=== PATIENT | female | born 1985 | race Two or more races ===

== ENCOUNTER 2023-05-11 09:53 | Outpatient (CLI) | payer OTHER | END 2023-05-11 10:01 | disposition home or self-care (01) | LOC: RX STUDY 09:53 | PROVIDERS: ATTEND Obstetrics & Gynecology Reproductive Endocrinology | DX: N93.0 Postcoital and contact bleeding (principal) ==

== ENCOUNTER 2025-01-10 16:09 | Outpatient (CLI) | payer OTHER | END 2025-01-10 17:05 | disposition home or self-care (01) | LOC: NST 16:09 | PROVIDERS: ATTEND Obstetrics & Gynecology Gynecology | DX: Z34.83 Encounter for supervision of other normal pregnancy, third trimester (principal) ==

== ENCOUNTER 2025-02-19 14:00 | Inpatient (IN) | payer OTHER ==
[~2025-02-19] VITALS: Ht 165.1 cm; Wt 72.6 kg
[2025-03-03] VITALS (7 sets, daily range): BP systolic 113–140; BP diastolic 66–87; O2SAT 96
[2025-03-03] MEDS ORDERED: AMPICILLIN SODIUM 2,000 MG VIAL IV ONE (06:15)
[2025-03-03] MEDS ORDERED: RINGERS SOLUTION,LACTATED 1,000 ML IV SCH (06:15)
[2025-03-03] MEDS ORDERED: [UNRECOGNIZED DRUG - OTHER] (07:12)
[2025-03-03 08:54] LABS: BASO % 0.2 % (0.1-1.2); EOS # 0.15 (0.04-0.54); EOS % 1.2 % (0.7-7.0); LYMPH # 1.25 (1.18-3.74); LYMPH % 10.0 % (19.3-53.1); MEAN PLATELET VOLUME 10.50 fl (9.4-12.4); MONO # 0.51 (0.24-0.82); MONO % 4.1 % (4.7-12.5); NEUT # 10.56 (1.56-6.13); NEUT % 84.3 % (34.0-71.1); RED CELL DISTRIBUTION WIDTH 13.2 % (11.6-14.4)
[2025-03-03] MEDS ORDERED: AMPICILLIN SODIUM 1,000 MG VIAL IV SCH (09:00)
[2025-03-03 09:23] LABS: ALT/SGPT 21.0 U/L (12-78); AST/SGOT 18.0 U/L (15-37); BILIRUBIN TOTAL 0.45 mg/dL (0.3-1.2); BUN CREA RATIO 19.0 (7.0-25.0); CREATININE SERUM 0.43 mg/dL (0.55-1.02); GFR 164.33; GLOBULINA 3.8 G/DL (2.4-3.5); GLUCOSE FASTING 118.0 mg/dL (65-100); OSMOLALITY SERUM 273.0 MOSM/KG (275-295)
[2025-03-03] MEDS ORDERED: OXYTOCIN 1,000 ML IV ONE (09:30)
[2025-03-03] MEDS ORDERED: OXYTOCIN 500 ML IV SCH (09:30)
[2025-03-03 09:51] LABS: INR < 0.93
[2025-03-03] MEDS ORDERED: METHYLERGONOVINE MALEATE 0.2 MG/ML AMPUL IV STA (17:58)
[2025-03-03] MEDS ORDERED: CHLORHEXIDINE GLUCONATE 120 ML BOTTLE TP SCH (18:00)
[2025-03-03] MEDS ORDERED: OXYTOCIN 1,000 ML IV SCH (18:00)
[2025-03-04 00:23] VITALS: BP 110/68; BP 135/88
[2025-03-04 08:09] VITALS: BP 105/67
[2025-03-04 16:44] VITALS: BP 100/60
[2025-03-05] VITALS: BP 116/73
[2025-03-05 08:28] VITALS: BP 115/72
[2025-03-05 17:21] VITALS: BP 133/83
== END 2025-03-05 18:41 | disposition home or self-care (01) | DRG 807 ==
LOC: LDR 03-03 06:02 → OB/GYN 03-03 14:00
PROVIDERS: ADMIT Obstetrics & Gynecology; ATTEND Obstetrics & Gynecology
PROC: 10E0XZZ Delivery of Products of Conception, External Approach (ICD-10-PCS; principal; 2025-03-03)
PROC: 0W8NXZZ Division of Female Perineum, External Approach (ICD-10-PCS; 2025-03-03)
PROC: 4A1HXCZ Monitoring of Products of Conception, Cardiac Rate, External Approach (ICD-10-PCS; 2025-03-03)
DX: O99.824 Streptococcus B carrier state complicating childbirth (principal); Z37.0 Single live birth; Z3A.40 40 weeks gestation of pregnancy

== ENCOUNTER 2025-03-02 17:06 | Outpatient (CLI) | payer OTHER ==
[2025-03-02 16:03] VITALS: BP 130/75
[2025-03-02 18:52] VITALS: BP 123/71
[2025-03-02 20:24] VITALS: BP 123/71
[2025-03-03] MEDS ORDERED: [UNRECOGNIZED DRUG - OTHER] (07:12)
== END 2025-03-03 08:14 | disposition home or self-care (01) ==
LOC: OBS/DEL 17:06
PROVIDERS: ATTEND Obstetrics & Gynecology
DX: O26.893 Other specified pregnancy related conditions, third trimester (principal); Z3A.39 39 weeks gestation of pregnancy